=== PATIENT | female | born 1950 | race Caucasian/White ===

== ENCOUNTER 2023-05-15 14:21 | Outpatient (CLI) | payer OTHER | END 2023-05-15 14:36 | disposition home or self-care (01) | LOC: MRI 14:21 | PROVIDERS: ATTEND Physical Medicine & Rehabilitation | DX: M17.12 Unilateral primary osteoarthritis, left knee (principal); M25.561 Pain in right knee; W19.XXXA Unspecified fall, initial encounter | CPT/HCPCS: 73721 ==

== ENCOUNTER 2024-08-03 07:36 | Outpatient (CLI) | payer OTHER | END 2024-08-03 07:39 | disposition home or self-care (01) | LOC: NUCLEAR 07:36 | PROVIDERS: ATTEND Physical Medicine & Rehabilitation | DX: I87.2 Venous insufficiency (chronic) (peripheral) (principal) ==